=== PATIENT | male | born 1950 | race Caucasian/White ===

== ENCOUNTER 2018-05-19 12:57 | Emergency (ER) | payer OTHER ==
[~2018-05-19] VITALS: Ht 175.3 cm; Wt 117.9 kg
[2018-05-19] MEDS ORDERED: TOPROL XL25 MG PO (13:05)
[2018-05-19] MEDS ORDERED: LIPITOR80 MG PO (13:06)
[2018-05-19] MEDS ORDERED: ASPIR 8181 MG PO (13:06)
[2018-05-19] MEDS ORDERED: ALLER-EASE180 MG PO (13:06)
[2018-05-19] MEDS ORDERED: ZESTORETIC 10-1 EACH PO (13:06)
[2018-05-19] MEDS ORDERED: MOBIC7.5 MG PO ×2 (14:09→15:08)
[2018-05-19 16:14] VITALS: BP 173/94
== END 2018-05-19 15:20 | disposition home or self-care (01) ==
LOC: ER 12:57
DX: S63.8X1A Sprain of other part of right wrist and hand, initial encounter (principal); W18.39XA Other fall on same level, initial encounter; Y92.89 Other specified places as the place of occurrence of the external cause; Y93.89 Activity, other specified; Y99.8 Other external cause status